=== PATIENT | female | born 1995 | race Caucasian/White ===

== ENCOUNTER 2021-04-04 15:47 | Emergency (ER) | payer BC, SELFPAY ==
[2021-04-04 15:52] VITALS: BP 120/73; PULSE 79; RESP 18; TEMP 36.2; O2SAT 97
--- NOTE | 2021-04-04 16:02 | ED.GENADUL_ITS ---
Discharge Plan Disposition Patient Disposition: HOME Condition: Stable Discharge Details Clinical Impression: UTI (urinary tract infection) Primary Care Provider: Stephani Lagunas ED Provider: Evy Gardiner Home Meds and New Rx's Prescriptions: New nitrofurantoin monohyd/m-cryst [Macrobid] 100 mg capsule 100 mg PO Q12H 5 Days Qty: 10 RF: 0 phenazopyridine [Pyridium] 200 mg tablet 200 mg PO TID PRN (Reason: pain) Qty: 6 RF: 0 Continued levonorgestrel-ethinyl estrad [Larissia] 0.1-20 mg-mcg tablet 1 tab PO DAILY RF: 0 sertraline 50 mg tablet 50 mg PO DAILY RF: 0 Discharge Instructions Instructions: Urinary Tract Infection in Women (ED) Additional Instructions: Drink plenty of fluids and get plenty of rest. Alternate tylenol and motrin as needed and directed for pain. Your prescriptions have been sent electronically to your pharmacy. Call the pharmacy to make sure your prescriptions are ready before pickup. Take the prescriptions as directed. Follow-up with your primary care doctor in 1 week. Return to the emergency department with any worsening or new concerning symptoms. Discharge Data Discharge Date/Time-TO BE ENTERED AT DEPARTURE: 04/04/21 16:39 Discharge Physician: Evy Gardiner Medical Decision Making 26-year-old female presents with UTI symptoms since this morning. She appears comfortable and nontoxic. She has no symptoms of fever, vomiting or back pain, so not consistent with pyelonephritis. Urinalysis notes findings consistent with UTI. Urine test negative. She was given a dose of Macrobid here and bottles of Macrobid and Pyridium to go. Prescriptions for Macrobid and Pyridium sent electronically to her pharmacy. Advised to follow up with the primary care doctor for re-evaluation. Usual and customary return precautions given prior to discharge. Medical Records Medical records reviewed: Yes I reviewed the patient's medical records. Lab Data Lab results reviewed: Yes I reviewed the patient's lab results. Labs: 04/04/21 15:51 Urine - Reflex from Ua Urine Culture - Pending Laboratory Tests Range/Units 04/04/21 15:51 Urine Color (Yellow) Yellow Urine Clarity (Clear) Sl Cloudy Urine pH (5-8) 7.0 Ur Specific [place] (1.005-1.025) 1.025 Urine Protein (Negative) mg/dL 100 H Urine Ketones (Negative) mg/dL Trace H Urine Blood (Negative) Large H Urine Nitrite (Negative) Positive H Urine Bilirubin (Negative) Negative Urine Urobilinogen (Up TO 0.2) EU/dL 1.0 H Ur Leukocyte Esterase (Negative) Moderate H Urine RBC (0-2) HPF >50 H Urine WBC (0-5) HPF >50 H Ur Epithelial Cells (Negative) HPF Few Urine Crystals (Negative) HPF Negative Urine Bacteria (Negative) HPF Many Urine Casts (Negative) LPF Negative Urine Mucus (Negative) Negative Urine Other (Negative) Few Transitional Ur Culture Indicated? Yes Urine Glucose (Negative) mg/dL Negative HPI General Mode of arrival: ambulatory . Date/Time Provider Initiated Documentation: 04/04/21 16:00 . Limitations to Documentation: no limitations . Information obtained by: patient . HPI Narrative: Pt is a 26yo F who presents to the ED with a complaint of urinary frequency, urgency, dysuria and suprapubic pressure since this morning. Patient has a history of urinary tract infection has states this feels similar to that. She states she is sexually active with one partner for several years and denies any known exposure to STDs. She denies any vaginal discharge or genital lesions. She denies fever, nausea, vomiting or back pain. Related Data Home Medications Medication Instructions Recorded Confirmed levonorgestrel-ethinyl estrad 1 tab PO DAILY 04/04/21 04/04/21 [Larissia] nitrofurantoin monohyd/m-cryst 100 mg PO Q12H 5 Days #10 cap 04/04/21 [Macrobid] phenazopyridine [Pyridium] 200 mg PO TID PRN #6 tab 04/04/21 sertraline 50 mg PO DAILY 04/04/21 04/04/21 Previous Rx's Medication Instructions Recorded nitrofurantoin monohyd/m-cryst 100 mg PO Q12H 5 Days #10 cap 04/04/21 [Macrobid] phenazopyridine [Pyridium] 200 mg PO TID PRN #6 tab 04/04/21 Allergies Allergy/AdvReac Type Severity Reaction Status Date / Time Penicillins Allergy Unknown Hives Unverified 04/04/21 16:03 General Stated Complaint: Urinary ANNA: 4 Review of Systems All systems reviewed & are unremarkable except as noted in HPI and below Constitutional Constitutional: Reports as per HPI, Denies chills and Denies fever(s) Eyes Eyes: Denies blurry vision ENT Ears, Nose, Mouth, and Throat: Denies dizziness, Denies sore throat and Denies throat swelling Cardiovascular Cardiovascular: Denies chest pain and Denies dyspnea Respiratory Respiratory: Denies cough and Denies dyspnea Gastrointestinal Gastrointestinal: Denies abdominal pain, Denies diarrhea and Denies vomiting Genitourinary Genitourinary: Reports hematuria, Reports difficulty voiding, Denies dysuria and Reports urinary urgency Musculoskeletal Musculoskeletal: Denies back pain and Denies numbness Integumentary/Breasts Skin/Breast: Denies lesions and Denies rash Neurologic Neurologic: Denies dizziness, Denies localized weakness and Denies numbness Allergic/Immunologic Allergic/Immunologic: Denies throat swelling PFSH Medical History (Updated 04/04/21 @ 16:34 by Evy Gardiner DO) Depression Surgical History (Updated 04/04/21 @ 16:10 by Evy Gardiner DO) H/O wisdom tooth extraction Social History Smoking/Tobacco Use Status: Never Smoking risk assessment performed?: Yes Alcohol Intake: never Drug use: Never Do you feel safe at home: Yes Do you feel safe in your relationship?: Yes Exam Const General: cooperative, healthy appearing and no acute distress HENMT Head: normal to inspection Face and sinus: normal facial exam Eyes General: appearance normal, both eyes and all related structures EOM: EOM intact bilaterally Neck Neck: normal visual inspection and No submandibular swelling Lymphatic: no lymphadenopathy noted Chest Chest: normal inspection of the chest and no tenderness Resp Effort & Inspection: normal respiratory effort and able to speak in complete sentences Auscultation: clear to auscultation bilaterally Cardio Rate: regular rate Rhythm: regular rhythm GI Inspection: normal to inspection Palpation: soft, not firm, not rigid and nontender Auscultation: normal bowel sounds Back/Spine/Pelvis Back: no CVA tenderness Skin General skin exam: no rashes or lesions noted Neuro General: patient alert, patient awake and patient oriented x3 Cognition: normal cognition Speech: speech normal Motor: muscle tone normal throughout Sensory Exam: no sensory deficits noted Extrem General: normal to inspection, full ROM, capillary refill normal, no calf tenderness bilaterally and no edema Psych Appearance: grossly normal Mental Status: mental status grossly normal Speech and Movement: speech and movement normal Affect: normal affect Course Vital Signs Vital signs: Vital Signs Temperature 97.2 F L 04/04/21 15:52 Pulse 79 04/04/21 15:52 Respiratory Rate 18 04/04/21 15:52 Blood Pressure 120/73 04/04/21 15:52 Pulse Oximetry 97 04/04/21 15:52 Temperature 97.2 F L 04/04/21 15:52 Temperature Source Temporal Artery Scan 04/04/21 15:52 Pulse 79 04/04/21 15:52 Respiratory Rate 18 04/04/21 15:52 Respiratory Effort Non-Labored 04/04/21 16:00 Blood Pressure 120/73 04/04/21 15:52 Blood Pressure Position Sitting 04/04/21 15:52 Pulse Oximetry 97 04/04/21 15:52 Oxygen Delivery Method Room Air 04/04/21 15:52 Oxygen Flow Rate 0 04/04/21 15:52 Pain Level 2 04/04/21 16:01
[2021-04-04 16:12] LABS: Bilirubin Negative (Negative); Blood Large (Negative); Clarity Sl Cloudy (Clear); Glucose Negative (Negative); Ketones Trace mg/dL (Negative); Leukocyte Esterase Moderate (Negative); Nitrite Positive (Negative); Specific Gravity 1.025 (1.005-1.025)
[2021-04-04 16:27] LABS: Bacteria Many HPF (Negative); Epithelial Cells Few HPF (Negative); Other Cells Few Transitional (Negative); RBC >50 HPF (0-2); WBC >50 HPF (0-5)
[2021-04-04 16:28] LABS: C & S Indicated? Yes; Casts Negative LPF (Negative); Crystals Negative HPF (Negative); Mucus Negative (Negative)
[2021-04-04] MEDS: MacroBID 100 MG CAP PO (16:36)
[2021-04-04] MEDS: MacroBID 100 MG CAP, 2 CAPS/BTL PO (16:37)
[2021-04-04] MEDS: Phenazopyridine 100 MG TAB, 2 TABS/BTL PO (16:38)
== END 2021-04-04 16:39 | disposition home or self-care (01) ==
PROVIDERS: Emergency Provider Physician Assistant
DX: N39.0 Urinary tract infection, site not specified (principal)
CPT/HCPCS: 81025; 87077; 99283; 81003; 81015; 87086; 87186